=== PATIENT | female | born 2000 | race Caucasian/White ===

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

== ENCOUNTER 2019-05-29 12:57 | Emergency (ER) | payer OTHER ==
[2019-05-29 14:01] LABS: ABSOLUTE MONOCYTES (AUTO) 0.5 10^3/uL (0.1-1.4); ABSOLUTE NEUT (AUTO) 5.5 10^3/uL (1.7-8.2); BASOPHILS % (AUTO) 0.4 % (0-2); EOSINOPHILS % (AUTO) 0.6 % (0-6); HEMOGLOBIN 13.3 g/dL (12.0-15.5); LYMPHOCYTES % (AUTO) 14.3 % (13-45); MEAN CORPUSCULAR HEMOGLOBIN 29.2 pg (27.0-33.4); MEAN CORPUSCULAR HGB CONC 34.2 g/dL (32.0-36.0); MEAN CORPUSCULAR VOLUME 85 fl (80-97); MONOCYTES % (AUTO) 7.1 % (3-13); PLATELET COUNT 172 10^3/uL (150-450); RED BLOOD COUNT 4.58 10^6/uL (3.72-5.28); RED CELL DISTRIBUTION WIDTH 12.8 % (11.5-14.0); SEGMENTED NEUTROPHILS % (AUTO) 77.6 % (42-78); TOTAL CELLS COUNTED % (AUTO) 100 %; WHITE BLOOD COUNT 7.1 10^3/uL (4.0-10.5)
[2019-05-29 14:19] LABS: ALBUMIN 4.1 g/dL (3.7-5.6); ALKALINE PHOSPHATASE 39 U/L (50-135); ANION GAP 10 (5-19); ASPARTATE AMINO TRANSFERASE 18 U/L (5-30); BILIRUBIN,DIRECT 0.2 mg/dL (0.0-0.4); BILIRUBIN,TOTAL 0.3 mg/dL (0.2-1.3); BLOOD UREA NITROGEN 10 mg/dL (7-20); CARBON DIOXIDE 25 mmol/L (22-30); CHLORIDE 103 mmol/L (98-107); GLUCOSE 97 mg/dL (75-110); POTASSIUM 4.3 mmol/L (3.6-5.0); TOTAL PROTEIN 6.8 g/dL (6.3-8.2)
[2019-05-29 14:34] LABS: APPEARANCE,URINE CLOUDY; BILIRUBIN,URINE NEGATIVE (NEGATIVE); COLOR,URINE AMBER; GLUCOSE, URINE NEGATIVE (NEGATIVE); KETONES,URINE 20 mg/dL (NEGATIVE); LEUKOCYTE ESTERASE,URINE TRACE (NEGATIVE); NITRITE,URINE NEGATIVE (NEGATIVE); PROTEIN,URINE 30 mg/dL (NEGATIVE); URINE SPECIFIC GRAVITY 1.029
--- NOTE | 2019-05-29 14:47 | ER Document Report ---
HPI - HPI Patient complains to provider of: chest pain, sob, vomiting, Time Seen by Provider: 05/29/19 13:28 Onset/Duration: Gradual, Intermittent Severity: Mild Pain Level: Denies Context: 18 yr old female patient, with the listed pmh, who is approx 9wks , with lmp march 2019, , here for intermittent cp and sob x a few days none currently. hx of hyperemesis gravidarum usually controlled with reglan and failed zofran, also states she has had a few episodes of nonbloody nonbilious vomiting today typical of her usual hyperemesis gravidarum. she is able to tolerate some po. she feels like she just pulled something secondary to her vomiting. she has f/u in a few days with her obgyn. she has had a confirmed IUP. she denies any abd pain. No abdominal surgeries unless listed otherwise. No history of ovarian cysts, fibroids, endometriosis, or renal stones. Normal bow el movements. No UTI symptoms. No URI symptoms. No recent antibiotics or steroids. No history of diabetes or asthma. No vaginal discharge/complaints/lesions/bleeding or concerns for STDs and does not want a pelvic exam. No ripping or tearing sensation. Hasn't taken anything else for her symptoms. No excessive NSAID use, Tylenol use, or EtOH. No prior history of gallbladder disease, pancreatitis, ulcers, GI bleed, GERD, IBS, Crohn's, or UC. no change in color or caliber or stool. no blood thinners. no fall or trauma. Pt denies any prior personal cardiac history. denies any family history of sudden or cardiac dz at a young age. no syncope. no palpitations. no hx of mi, cva, tia, or cad. no ripping or tearing sensation. denies any blood thinners. No prior history of blood clots. No recent long distance travel/immobilization, recent surgery, exogenous estrogen use, hemoptysis, history of cancer, or calf pain/swelling. No prior history of arrhythmias. no other associated sx. Similar symptoms previously: Yes Recently seen / treated by doctor: No - ROS Systems Reviewed and Negative: Yes All other systems reviewed and negative - to include 10 systems, unless mentioned in the hpi - REPRODUCTIVE Reproductive: REPORTS: : - DERM Skin Color: Normal Past Medical History - General Information source: Patient - Social History Smoking Status: Never Smoker Frequency of alcohol use: None Drug Abuse: None Lives with: Family Family History: Reviewed & Not Pertinent Patient has suicidal ideation: No Patient has homicidal ideation: No Renal/ Medical History: Denies: Hx Peritoneal Dialysis - Immunizations Immunizations up to date: Yes Vertical Provider Document - CONSTITUTIONAL Exam Limitations: No Limitations General Appearance: No Apparent Distress Notes: >>>> PHYSICAL_EXAM: GENERAL_APPEARANCE: well_nourished, alert, cooperative, no_acute_distress, no _obvious_discomfort. Pleasant, young, female, smiling, speaking in full sentences, in no sign of pain or resp distress, easily sitting up, no one is with her VITALS: reviewed, see vital signs table. HEAD: normocephalic, atraumatic. no calzada signs. no raccoon eyes. EYES: PERRL, EOMI, (-)scleral icterus. NOSE: no_nasal_discharge. MOUTH: (-)decreased moisture. THROAT: no_tonsilar_inflammation/hypertrophy/exudate NECK: supple, no_neck_tenderness, full rom. full strength. no meningeal signs. BACK: no midline_back_tenderness. no step offs or deformities CHEST_WALL: mild_chest_tenderness peristernally which reproduces pts prior cp, no overlying skin changes, no crepitation or flail chest. LUNGS: no_wheezing, (-)accessory muscle use, good air exchange bilateral. HEART: normal_rate, normal_rhythm, ABDOMEN: normal_BS, soft, abdomen-diffuse, non-tender, uterus not palpated on exam, (-)guarding, (-)rebound, no distension or peritoneal signs. neg murphys. neg mcburneys. no cva tenderness. PELVIC: deferred by pt RECTAL: deferred EXTREMITIES: strength 5/5 in all_extremities, good pulses in all_extremities, no_edema, no_swelling\tenderness. full rom. normal gait. good hand bench assembler electrical. brisk cap refill. neg luther sign SKIN: warm, dry, good_color, no_rash. no grossly visible overlying skin changes to suggest trauma NEURO: motor_intact, sensory_intact. cranial nerves 2-12 intact, cerebellar fxn intact MENTAL_STATUS: normal_affect, speech_clear, oriented_X_3, responds_appropriately to questions. - INFECTION CONTROL TRAVEL OUTSIDE OF THE [place] IN LAST 30 DAYS: No Course - Re-evaluation Re-evalutation: pt here for intermittent cp and sob. none currently, prior cp reproducible on exam. labs unremarkable. she has no abd ttp on exam or any uti or vaginal sx. she has had a confirmed iup this she states and has close f/u with obgyn. no fall or trauma. serial abd exams remain benign. ekg unremarkable per dr christina. she was abd shielded and cxr neg per rad and reviewed by myself. she is low risk for acs or blood clots. informed pt of this and of pe risk and she wishes to avoid further radiation via ct scan or vq scan to fully r/o pe as she has normal vitals, normal o2 sats and pain reproducible on exam and is otherwise low risk for pe. advised if sx changed or worsened she needed to return for further workup, advised sx care. cont prenatals. tylenol prn pain. she is tolerating po and didn't want anything for nausea here. ucx pending. advised sx care. advised to f/u with obgyn in 1-2 days. return for any worsening symptoms. vss. well appearing. satting well on ra. neurononfocal. pt understands and agrees to plan. On reexam, pt improved with tx listed. remained stable. nontoxic. well appearing. pain controlled. tolerating po. requesting to go home. serial abd exams remain benign. case discussed with ER Attending, Dr. christina, who directed and agrees with plan of care and advised no further workup indicated at this time and pt is stable for dc home with close f/u with pcp/specialist. Documentation achieved through voice recording which my lead to some occasional accidental typographical errors. Extensive efforts have been made to proof read documentation to make sure these are the least as possible. 05/29/19 17:17 Category Date Time Status EKG Documentation STAT Care 05/29/19 14:49 Completed CHEST 2 VIEWS [RAD] Stat Exams 05/29/19 15:08 Completed CBC WITH DIFF [HEME] Stat Lab 05/29/19 13:40 Completed COMPREHENSIVE METABOLIC PANEL [CHEM] Stat Lab 05/29/19 13:40 Completed HCG QUALITATIVE, URINE [URIN] Stat Lab 05/29/19 13:30 Completed HCG QUANTITATIVE [CHEM] Stat Lab 05/29/19 13:40 Received LIPASE [CHEM] Stat Lab 05/29/19 13:40 Completed MAGNESIUM [CHEM] Stat Lab 05/29/19 13:40 Received TROPONIN I [CHEM] Stat Lab 05/29/19 15:42 Received URINALYSIS [URIN] Stat Lab 05/29/19 13:30 Completed URINE CULTURE [MC] Stat Lab 05/29/19 16:33 Uncollected EKG ER ONLY [ER] Stat Oth 05/29/19 Active - Vital Signs Vital signs: Temp Pulse Resp BP Pulse Ox 98.5 F 96 H 15 112/67 98 05/29/19 13:04 05/29/19 13:04 05/29/19 13:04 05/29/19 13:04 05/29/19 13:04 - Laboratory Result Diagrams: 05/29/19 13:40 05/29/19 13:40 Laboratory results interpreted by me: 05/29/19 05/29/19 13:30 13:40 Alkaline Phosphatase 39 L Urine Protein 30 H Urine Ketones 20 H Urine Urobilinogen 2.0 H Ur Leukocyte Esterase TRACE H Urine HCG, Qual POSITIVE H 05/29/19 17:16 Labs- Entire Visit 05/29/19 05/29/19 05/29/19 13:30 13:40 13:40 WBC 7.1 RBC 4.58 Hgb 13.3 Hct 39.0 MCV 85 MCH 29.2 MCHC 34.2 RDW 12.8 Plt Count 172 Lymph % (Auto) 14.3 [place] % (Auto) 7.1 Eos % (Auto) 0.6 Baso % (Auto) 0.4 Absolute Neuts (auto) 5.5 Absolute Lymphs (auto) 1.0 Absolute Monos (auto) 0.5 Absolute Eos (auto) 0.0 Absolute Basos (auto) 0.0 Seg Neutrophils % 77.6 Sodium 138.0 Potassium 4.3 Chloride 103 Carbon Dioxide 25 Anion Gap 10 BUN 10 Creatinine 0.60 Est GFR ( Amer) > 60 Est GFR (MDRD) Non-Af > 60 Glucose 97 Calcium 10.0 Magnesium Total Bilirubin 0.3 Direct Bilirubin 0.2 Neonat Total Bilirubin Not Reportable Neonat Direct Bilirubin Not Reportable Neonat Indirect Bili Not Reportable AST 18 ALT 12 Alkaline Phosphatase 39 L Troponin I Total Protein 6.8 Albumin 4.1 Lipase 95.5 Beta HCG, Quant Total Beta HCG Urine Color SERVANDO Urine Appearance CLOUDY Urine pH 6.0 Ur Specific [place] 1.029 Urine Protein 30 H Urine Glucose (UA) NEGATIVE Urine Ketones 20 H Urine Blood NEGATIVE Urine Nitrite NEGATIVE Urine Bilirubin NEGATIVE Urine Urobilinogen 2.0 H Ur Leukocyte Esterase TRACE H Urine WBC (Auto) 5 Urine Bacteria (Auto) 1+ Squamous Epi Cells Auto 17 Urine Mucus (Auto) MANY Urine Ascorbic Acid NEGATIVE Urine HCG, Qual POSITIVE H 05/29/19 05/29/19 13:40 15:42 WBC RBC Hgb Hct MCV MCH MCHC RDW Plt Count Lymph % (Auto) [place] % (Auto) Eos % (Auto) Baso % (Auto) Absolute Neuts (auto) Absolute Lymphs (auto) Absolute Monos (auto) Absolute Eos (auto) Absolute Basos (auto) Seg Neutrophils % Sodium Potassium Chloride Carbon Dioxide Anion Gap BUN Creatinine Est GFR ( Amer) Est GFR (MDRD) Non-Af Glucose Calcium Magnesium 1.9 Total Bilirubin Direct Bilirubin Neonat Total Bilirubin Neonat Direct Bilirubin Neonat Indirect Bili AST ALT Alkaline Phosphatase Troponin I < 0.012 Total Protein Albumin Lipase Beta HCG, Quant 416929.00 H Total Beta HCG POSITIVE Urine Color Urine Appearance Urine pH Ur Specific [place] Urine Protein Urine Glucose (UA) Urine Ketones Urine Blood Urine Nitrite Urine Bilirubin Urine Urobilinogen Ur Leukocyte Esterase Urine WBC (Auto) Urine Bacteria (Auto) Squamous Epi Cells Auto Urine Mucus (Auto) Urine Ascorbic Acid Urine HCG, Qual - Diagnostic Test Radiology reviewed: Image reviewed, Reports reviewed Radiology results interpreted by me: 05/29/19 17:16 Chest X-Ray 05/29/19 15:08 IMPRESSION: NO ACUTE RADIOGRAPHIC FINDING IN THE CHEST. - EKG Interpretation by Pr EKG shows normal: Sinus rhythm Rate: Normal Rhythm: NSR - 66 bpm, no stemi, reviewed by dr christina When compared to previous EKG there are: No significant change Discharge - Discharge Clinical Impression: Chest wall pain Condition: Good Disposition: HOME, SELF-CARE Instructions: Chest Wall Pain ([facility]) Additional Instructions: Follow-up with PCP/cardiology in 1 to 2 days. Return for any worsening symptoms. tylenol as needed for any pain or fever if not allergic. take your medication as prescribed. drink plenty of fluids. continue vitamins. Referrals: PJ MUKHERJEE MD [Primary Care Provider] - Follow up in 3-5 days
--- NOTE | 2019-05-29 15:40 | RADIOLOGY REPORT (SQ) ---
EXAM DESCRIPTION: CHEST 2 VIEWS COMPLETED DATE/TIME: 05/29/2019 3:29 pm REASON FOR STUDY: cp COMPARISON: None. EXAM PARAMETERS: NUMBER OF VIEWS: two views TECHNIQUE: Digital Frontal and Lateral radiographic views of the chest acquired. RADIATION DOSE: NA LIMITATIONS: none FINDINGS: LUNGS AND PLEURA: No opacities, masses or pneumothorax. No pleural effusion. MEDIASTINUM AND HILAR STRUCTURES: No masses or contour abnormalities. HEART AND VASCULAR STRUCTURES: Heart normal size. No evidence for failure. BONES: No acute findings. HARDWARE: None in the chest. OTHER: No other significant finding. IMPRESSION: NO ACUTE RADIOGRAPHIC FINDING IN THE CHEST. TECHNICAL DOCUMENTATION: JOB ID: [id number] [id number] 2010 [employer]- All Rights Reserved Reading location - IP/workstation name: [email or web address]
[2019-05-29 17:47] VITALS: BP 116/66
--- NOTE | 2019-05-29 20:39 | EKG REPORT ---
SEVERITY:- NORMAL ECG - SINUS RHYTHM : Confirmed by: Heather Holden MD 29-May-2019 20:38:07
== END 2019-05-29 17:25 | disposition home or self-care (01) ==
LOC: ER 12:57
DX: O26.891 Other specified pregnancy related conditions, first trimester (principal); R07.89 Other chest pain; R06.02 Shortness of breath; O21.9 Vomiting of pregnancy, unspecified; Z3A.09 9 weeks gestation of pregnancy
CPT/HCPCS: 36415; 71046; 80053; 81001; 81025; 83690; 83735; 84484; 84702; 85025; 87086; 93005; 93010; 99284